=== PATIENT | male | born 1995 | race Caucasian/White ===

== ENCOUNTER 2017-07-16 09:46 | Emergency (ER) | payer OTHER ==
[~2017-07-16] VITALS: Ht 182.9 cm; Wt 76.2 kg
[2017-07-16] MEDS ORDERED: MULT-6 PO (10:25)
[2017-07-16] MEDS ORDERED: IRON1TAB60 PO (10:25)
[2017-07-16] MEDS ORDERED: SODIUM CHLORIDE FLUSH 10ML SYR IVF ONE (10:30)
[2017-07-16] MEDS ORDERED: SODIUM CHLORIDE 0.9% 1,000ML IVBOLUS ONE (10:30)
[2017-07-16 10:49] LABS: HEMATOCRIT 44.9 % (39.2-51.8); HEMOGLOBIN 15.3 g/dL (13.7-18.0); WHITE BLOOD COUNT 4.3 x10^3/uL (4.5-13.2)
[2017-07-16 10:52] VITALS: BP 126/78
[2017-07-16 10:56] LABS: BLOOD UREA NITROGEN 16 mg/dL (7-18)
[2017-07-16 11:02] LABS: IS PT STATUS REG ER OR PRE ER? YES
== END 2017-07-16 11:53 | disposition home or self-care (01) ==
LOC: ED 11:30
DX: R55 Syncope and collapse (principal)
CPT/HCPCS: 36415; 71010; 80048; 82040; 83735; 84436; 84443; 84484; 85025; 93005; 96360; 99285; J7030